=== PATIENT | female | born 1975 | race Caucasian/White ===

== ENCOUNTER 2019-12-02 04:26 | Day surgery (SDC) | payer BC ==
[2019-11-29 14:32] VITALS: BMI 29.4
[2019-12-02 06:56] LABS: BASO % 0.8 % (0-2.0); EOS % 1.7 % (0-4.5); HEMATOCRIT 36.1 % (32.4-45.2); HEMOGLOBIN 11.6 GM/dL (10.7-15.3); LYMPH % 39.5 % (8-40); MCH 26.6 pg (25.7-33.7); MCHC 32.3 g/dl (32.0-36.0); MEAN CELL VOLUME 82.3 fl (80-96); MEAN PLT VOLUME 8.5 fl (7.5-11.1); MONO % 6.9 % (3.8-10.2); NEUT % 51.1 % (42.8-82.8); PLATELET COUNT 222 K/MM3 (134-434); RBC 4.38 M/mm3 (3.60-5.2); RDW 15.6 % (11.6-15.6); WHITE BLOOD COUNT 5.1 K/mm3 (4.0-10.0)
[2019-12-02 06:58] LABS: INR 1.02 (0.83-1.09)
[2019-12-02 07:08] LABS: ALBUMIN 3.8 g/dl (3.4-5.0); BILIRUBIN,TOTAL 0.6 mg/dL (0.2-1); BLOOD UREA NITROGEN 14.6 mg/dL (7-18); CALCIUM 8.8 mg/dL (8.5-10.1); CREATININE 0.8 mg/dL (0.55-1.3); TOT PROT 6.9 g/dl (6.4-8.2)
[2019-12-02] MEDS ORDERED: PROPOFOL 20 ML ONE (07:27)
[2019-12-02] MEDS ORDERED: MIDAZOLAM HCL 2 MG/2 ML SINGLE DOSE VIAL ONE (07:27)
[2019-12-02] MEDS ORDERED: SUCCINYLCHOLINE CHLORIDE 200 MG/10 ML SYRINGE ONE (07:27)
[2019-12-02] MEDS ORDERED: LIDOCAINE HCL/PF 2% SDV 5ML VIAL ONE (08:03)
[2019-12-02] MEDS ORDERED: DEXAMETHASONE SOD PHOSPHATE 4 MG/1 ML VIAL ONE (08:03)
[2019-12-02] MEDS ORDERED: KETOROLAC TROMETHAMINE 30 MG/1 ML VIAL ONE (08:03)
--- NOTE | 2019-12-02 08:25 | OP ---
Operative Note - Note: Operative Date: 12/02/19 Pre-Operative Diagnosis: menorrhagia. endometrial hyperplasia Operation: hysteroscopy. D and C Post-Operative Diagnosis: Same as Pre-op Surgeon: Devaughn Wright Anesthesia: General Estimated Blood Loss (mls): 5
[2019-12-02] MEDS ORDERED: ONDANSETRON 4 MG/2 ML VIAL IVPUSH PRN (08:26)
[2019-12-02] MEDS ORDERED: oxyCODONE HCL 5 MG TABLET PO PRN (08:26)
[2019-12-02] MEDS ORDERED: PROMETHAZINE HCL 25 MG/1 ML VIAL IVPUSH PRN (08:26)
--- NOTE | 2019-12-02 09:53 | OP ---
DATE OF OPERATION: DATE OF DICTATION: 12/02/2019 PREOPERATIVE DIAGNOSES: 1. Menorrhagia. 2. Endometrial hyperplasia; thick endometrial echo. POSTOPERATIVE DIAGNOSES: 1. Menorrhagia. 2. Endometrial hyperplasia; thick endometrial echo. PROCEDURE: 1. Hysteroscopy. 2. Dilation and curettage. ANESTHESIA: General with LMA. SURGEON: Janell Perera MD PROCEDURE & FINDINGS: Under general anesthesia patient was examined. Uterus was normal size, shape and retroverted. No significant abnormalities in the uterus palpated. Adnexa within normal limits. Following a routine prep and drape, cervix was grasped with tenaculum and traction was applied to the uterus. Hysteroscopy was carried out. Symmetric cavity with a lot of polyp-like structures was noted. The endometrium looked reasonably benign. Endocervix was completely within normal limits. Hysteroscope was withdrawn and cervix was gently dilated. Sharp curettage was carried out and polypoid structures were retrieved using gallstone forceps. Specimen was sent for the pathology. Post D&C hysteroscopy was done and findings were within normal limits. Patient was awakened and procedure was terminated. She tolerated very well. Blood loss was less than 5 mL. Patient was transferred to PACU stable and comfortable. JANELL RUSSO MD [id number]
[2019-12-02 11:49] VITALS: PULSE 70; TEMP 97.8
[2019-12-02 11:53] VITALS: BP 100/70
[2019-12-03] MEDS ORDERED: LEVOTHYROXINE NA 100 MCG TABLET (FP) PO SCH (07:00)
--- NOTE | 2019-12-03 14:45 | PATH ---
Surgical Pathology Report Patient Name: MILO BEVERLY [facility]. Rec. #: [id number] /Age/Gender: 1975 (Age: 44) / F Account: [id number] Location: [facility] SURGICAL Taken: 12/02/2019 Received: 12/02/2019 Reported: 12/03/2019 Physicians: Devaughn Wright MD Specimen(s) Received ENDOMETRIAL CURETTINGS WITH POLYP Clinical History Excess of vaginal bleeding Final Diagnosis ENDOMETRIAL CURETTINGS WITH POLYP, DILATION AND CURETTAGE: POLYPOID FRAGMENTS OF PROLIFERATIVE ENDOMETRIUM SUGGESTIVE OF POLYP AND SCANT BENIGN CERVICAL TISSUE. Electronically Signed Temi Mitchell M.D. Gross Description Received in formalin labeled "endometrial curettings with polyp," is a 1.7 x 1.5 x 0.3 cm aggregate of arreola-pink soft tissue fragments. The formalin is filtered and the specimen is entirely submitted in one cassette. /12/02/2019 saudi/12/02/2019
== END 2019-12-02 12:00 | disposition home or self-care (01) ==
LOC: JASU-SURG 04:26
PROVIDERS: ATTEND Specialist
PROC: 0UDB7ZX Extraction of Endometrium, Via Natural or Artificial Opening, Diagnostic (ICD-10-PCS; principal; 2019-12-02 07:30)
PROC: 0UJD8ZZ Inspection of Uterus and Cervix, Via Natural or Artificial Opening Endoscopic (ICD-10-PCS; 2019-12-02 07:30)
DX: N92.0 Excessive and frequent menstruation with regular cycle (principal); N84.0 Polyp of corpus uteri; R93.89 Abnormal findings on diagnostic imaging of other specified body structures
CPT/HCPCS: 36415; 80053; 84703; 85025; 85610; 88305-TC; 94760

== ENCOUNTER 2020-03-31 11:44 | Emergency (ER) | payer BC | END 2020-03-31 12:51 | disposition home or self-care (01) | LOC: JVIRT 11:44 | DX: R50.9 Fever, unspecified (principal); U07.1 COVID-19 | CPT/HCPCS: C9803; Q3014-GT; U0003 ==

== ENCOUNTER 2021-05-17 08:26 | Emergency (ER) | payer BC ==
[2021-05-17 09:21] VITALS: BP 147/81; PULSE 65; TEMP 98.6; BMI 28.4
[2021-05-17] MEDS ORDERED: ACETAMINOPHEN 325 MG TABLET (FP) PO ONE (09:38)
[2021-05-17] MEDS ORDERED: ACETAMINOPHEN 325 MG TABLET (FP) ONE (10:08)
== END 2021-05-17 10:30 | disposition home or self-care (01) ==
LOC: FER 08:26
DX: M25.562 Pain in left knee (principal); W01.0XXA Fall on same level from slipping, tripping and stumbling without subsequent striking against object, initial encounter; Y93.23 Activity, snow (alpine) (downhill) skiing, snowboarding, sledding, tobogganing and snow tubing
CPT/HCPCS: 73562-TC-LT-FY; 99283-25

== ENCOUNTER 2021-06-30 04:24 | Day surgery (SDC) | payer BC ==
[2021-06-25 18:58] VITALS: BMI 28.8
[2021-06-30] MEDS ORDERED: PROPOFOL 20 ML ONE ×2 (07:08)
[2021-06-30] MEDS ORDERED: LIDOCAINE HCL/PF 2% SDV 5ML VIAL ONE (07:19)
[2021-06-30] MEDS ORDERED: MIDAZOLAM HCL 2 MG/2 ML SINGLE DOSE VIAL ONE ×2 (07:19→07:26)
[2021-06-30] MEDS ORDERED: BUPIVACAINE HCL/PF 0.5% (5MG/ML) 10 ML VIAL ONE (07:24)
[2021-06-30] MEDS ORDERED: BUPIVACAINE LIPOSOME/PF (EXPAREL) 266 MG/20 ML VIAL ONE (07:24)
[2021-06-30] MEDS ORDERED: ceFAZolin SODIUM 1 GM VIAL ONE (08:36)
[2021-06-30] MEDS ORDERED: ceFAZolin SODIUM 1 GM VIAL IVPB ONE (08:41)
[2021-06-30] MEDS ORDERED: ONDANSETRON 4 MG/2 ML VIAL ONE ×2 (08:46→10:48)
[2021-06-30] MEDS ORDERED: DEXAMETHASONE SOD PHOSPHATE 4 MG/1 ML VIAL ONE (08:46)
[2021-06-30] MEDS ORDERED: KETOROLAC TROMETHAMINE 30 MG/1 ML VIAL ONE (09:19)
[2021-06-30] MEDS ORDERED: oxyCODONE HCL 5 MG TABLET PO PRN (09:35)
[2021-06-30] MEDS ORDERED: ONDANSETRON 4 MG/2 ML VIAL IVPUSH PRN (09:35)
[2021-06-30] MEDS ORDERED: LACTATED RINGERS SOLUTION 1,000 ML IV SCH (09:45)
[2021-06-30 10:32] VITALS: TEMP 97
[2021-06-30] MEDS ORDERED: oxyCODONE HCL 10 MG SUSTAINED ACTING TABLET ONE ×2 (10:48→15:23)
[2021-06-30] MEDS: oxyCODONE HCL 5 MG TABLET PO PRN ×2 (10:51→15:22)
[2021-06-30 14:22] VITALS: BP 120/65; PULSE 62
== END 2021-06-30 16:01 | disposition home or self-care (01) ==
LOC: JASU-SURG 04:24
PROVIDERS: ATTEND Orthopaedic Surgery
PROC: 0MRP4KZ Replacement of Left Knee Bursa and Ligament with Nonautologous Tissue Substitute, Percutaneous Endoscopic Approach (ICD-10-PCS; principal; 2021-06-30 08:00)
DX: S83.512A Sprain of anterior cruciate ligament of left knee, initial encounter (principal); M25.562 Pain in left knee; X58.XXXA Exposure to other specified factors, initial encounter; Y92.9 Unspecified place or not applicable; Y93.9 Activity, unspecified
CPT/HCPCS: 29888; C1776; 94760